=== PATIENT | female | born 1955 | race Caucasian/White ===

== ENCOUNTER 2017-08-22 12:40 | Inpatient (IN) | payer MEDICARE ==
[~2017-08-22] VITALS: Ht 157.5 cm; Wt 87.7 kg
[2017-08-22 15:30] VITALS: BP 118/56
[2017-08-22 15:44] VITALS: BP 118/56
[2017-08-22] MEDS ORDERED: ACETAMINOPHEN 325 MG TABLET PO PRN (16:30)
[2017-08-22] MEDS ORDERED: morphine SULFATE 10 MG/ML, 1ML IVPush PRN (16:30)
[2017-08-22] MEDS ORDERED: ONDANSETRON 2MG/ML, 2ML IVPush PRN (16:30)
[2017-08-22] MEDS ORDERED: VANCOMYCIN PMX 1GM/200ML 200 ML IV ONE (16:30)
[2017-08-22] MEDS ORDERED: hydrALAzine 20 MG/ML, 1ML IVPush PRN (16:30)
[2017-08-22] MEDS ORDERED: PLEASE ENTER ALLERGIES MC SCH (16:30)
[2017-08-22] MEDS ORDERED: PLEASE ENTER HEIGHT AND WEIGHT MC SCH (16:30)
[2017-08-22] MEDS ORDERED: VANCOMYCIN PER PHARMACY MC PRN (16:30)
[2017-08-22] MEDS ORDERED: ENOXAPARIN 40 MG/0.4 ML SQ SCH (16:30)
[2017-08-22] MEDS ORDERED: GADOBUTROL 10 MMOL/10 ML PFS ONE (17:30)
[2017-08-22] MEDS: SODIUM CHLORIDE 0.9% 1,000 ML IV SCH (17:54)
[2017-08-22] MEDS: HYDROcodone/APAP 5/325 TABLET PO PRN (18:23)
[2017-08-22 18:41] LABS: BASOPHILS # (AUTO) 0.01 x10^3/uL (0-0.1); BASOPHILS % (AUTO) 0 % (0-1); EOSINOPHILS # (AUTO) 0.05 x10^3/uL (0-0.4); EOSINOPHILS % (AUTO) 1 % (1-7); LYMPHOCYTES # (AUTO) 1.02 x10^3/uL (1-3.4); LYMPHOCYTES % (AUTO) 13 % (22-44); MD NO; MEAN CORPUSCULAR HEMOGLOBIN 29.1 pg (27.0-34.8); MEAN CORPUSCULAR HGB CONC 33.1 g/dL (32.4-35.8); MEAN CORPUSCULAR VOLUME 88.2 fL (80-100); MEAN PLATELET VOLUME 8.8 fL (7.4-10.4); MONOCYTES # (AUTO) 0.61 x10^3/uL (0.2-0.8); MONOCYTES % (AUTO) 8 % (2-9); NEUTROPHILS # (AUTO) 6.35 x10^3/uL (1.8-6.8); NEUTROPHILS % (AUTO) 79 % (42-75); PLATELET COUNT 251 x10^3/uL (130-400); RED BLOOD COUNT 3.73 x10^6/uL (3.82-5.3)
[2017-08-22 18:54] LABS: ANION GAP 7 mmol/L (5-15); CALCIUM 8.4 mg/dL (8.5-10.1); CHLORIDE 110 mmol/L (98-107); CREATININE 1.18 mg/dL (0.55-1.02)
[2017-08-22 19:03] LABS: FREE T4 (FREE THYROXINE) 1.05 ng/dL (0.76-1.46)
[2017-08-22 19:22] LABS: HEMOGLOBIN A1C 5.6 % (4.2-6.3)
[2017-08-22 19:30] VITALS: BP 112/67
[2017-08-22] MEDS: LINEZOLID PMX 600MG/300ML 300 ML IV SCH (20:39)
[2017-08-23] MEDS: HYDROcodone/APAP 5/325 TABLET PO PRN ×4 (01:39→21:34)
[2017-08-23 01:43] VITALS: BP 117/63
[2017-08-23 05:07] LABS: CHLORIDE 112 mmol/L (98-107)
[2017-08-23 05:18] LABS: ANION GAP 11 mmol/L (5-15); CALCIUM 8.6 mg/dL (8.5-10.1)
[2017-08-23 05:20] LABS: BASOPHILS # (AUTO) 0.02 x10^3/uL (0-0.1); BASOPHILS % (AUTO) 0 % (0-1); EOSINOPHILS # (AUTO) 0.08 x10^3/uL (0-0.4); EOSINOPHILS % (AUTO) 1 % (1-7); LYMPHOCYTES # (AUTO) 0.77 x10^3/uL (1-3.4); LYMPHOCYTES % (AUTO) 14 % (22-44); MD NO; MEAN CORPUSCULAR HEMOGLOBIN 29.9 pg (27.0-34.8); MEAN CORPUSCULAR HGB CONC 33.5 g/dL (32.4-35.8); MEAN CORPUSCULAR VOLUME 89.2 fL (80-100); MONOCYTES # (AUTO) 0.61 x10^3/uL (0.2-0.8); MONOCYTES % (AUTO) 11 % (2-9); NEUTROPHILS # (AUTO) 4.01 x10^3/uL (1.8-6.8); NEUTROPHILS % (AUTO) 73 % (42-75); PLATELET COUNT 201 x10^3/uL (130-400); RED BLOOD COUNT 3.61 x10^6/uL (3.82-5.3); RED CELL DISTRIBUTION WIDTH 13.8 % (9.6-15.2)
[2017-08-23] MEDS: SODIUM CHLORIDE 0.9% 1,000 ML IV SCH ×2 (05:51→19:30)
[2017-08-23 07:09] VITALS: BP 116/62
[2017-08-23] MEDS ORDERED: OXYB5TAB7 PO (07:16)
[2017-08-23] MEDS ORDERED: FENT1PAT77 TD (07:16)
[2017-08-23] MEDS ORDERED: SULF1TAB24 PO (07:16)
[2017-08-23] MEDS ORDERED: METO25TA91 PO (07:16)
[2017-08-23] MEDS ORDERED: CLON1TAB PO (07:16)
[2017-08-23] MEDS ORDERED: CELE100C PO (07:16)
[2017-08-23] MEDS: LINEZOLID PMX 600MG/300ML 300 ML IV SCH ×2 (08:42→20:31)
[2017-08-23] MEDS: METOPROLOL SUCCINATE 25 MG TAB.ER.24H PO SCH (08:43)
[2017-08-23 09:29] LABS: INTERNATIONAL NORMALIZED RATIO 1.05 (0.93-1.1); PROTHROMBIN TIME 10.8 Seconds (9.6-11.5)
[2017-08-23 13:17] VITALS: BP 104/54
[2017-08-23] MEDS: FLUOXETINE HCL 20 MG CAPSULE PO SCH (13:17)
[2017-08-23] MEDS ORDERED: EPINEPHRINE 1 MG/ML, 1ML ONE (16:41)
[2017-08-23] MEDS ORDERED: BUPIVACAINE/PF 0.25% ONE (16:41)
[2017-08-23] MEDS ORDERED: MIDAZOLAM 1 MG/ML, 2ML ONE (16:56)
[2017-08-23] MEDS ORDERED: FENTANYL PF 100 MCG/2ML ONE (16:56)
[2017-08-23] MEDS ORDERED: ONDANSETRON 2MG/ML, 2ML ONE (17:03)
[2017-08-23] MEDS ORDERED: DEXAMETHASONE 4 MG/ML, 1ML ONE (17:03)
[2017-08-23] MEDS ORDERED: CEFAZOLIN 1,000 MG ONE (17:03)
[2017-08-23] MEDS ORDERED: PROPOFOL 10 MG/ML, 20ML ONE (17:03)
[2017-08-23] MEDS ORDERED: BUPIVACAINE/PF 0.25% INFIL ONE (17:31)
[2017-08-23] MEDS ORDERED: METOPROLOL 1 MG/ML, 5ML IV PRN (18:00)
[2017-08-23] MEDS ORDERED: HYDROcodone/APAP 7.5-325MG/15ML UDC PO PRN (18:00)
[2017-08-23] MEDS ORDERED: ONDANSETRON 2MG/ML, 2ML IVPush PRN (18:00)
[2017-08-23] MEDS ORDERED: LABETALOL 5MG/ML, 20ML IV PRN (18:00)
[2017-08-23] MEDS ORDERED: ALBUTEROL SULFATE 2.5 MG/3 ML NPPB PRN (18:00)
[2017-08-23] MEDS ORDERED: MIDAZOLAM 1 MG/ML, 2ML IV PRN (18:00)
[2017-08-23] MEDS ORDERED: ACETAMINOPHEN 325 MG TABLET PO PRN (18:00)
[2017-08-23] MEDS ORDERED: EPHEDRINE 50 MG/ML, 1ML IVPush PRN (18:00)
[2017-08-23] MEDS ORDERED: PROMETHAZINE 25 MG/ML, 1ML IV PRN (18:00)
[2017-08-23] MEDS ORDERED: FENTANYL PF 100 MCG/2ML IV PRN (18:00)
[2017-08-23] MEDS ORDERED: hydrALAzine 20 MG/ML, 1ML IV PRN (18:00)
[2017-08-23] MEDS ORDERED: OXYcodone 5 MG/5 ML ORAL.SOL UDC PO PRN (18:00)
[2017-08-23] MEDS ORDERED: morphine SULFATE 10 MG/ML, 1ML IV PRN (18:00)
[2017-08-23 18:29] VITALS: BP 110/68
[2017-08-23] MEDS: TEMAZEPAM 15 MG CAPSULE PO PRN (22:52)
[2017-08-23 23:34] VITALS: BP 128/76
[2017-08-24 02:21] VITALS: BP 129/67
[2017-08-24] MEDS: SODIUM CHLORIDE 0.9% 1,000 ML IV SCH ×3 (03:30→23:30)
[2017-08-24 05:30] LABS: BASOPHILS # (AUTO) 0.01 x10^3/uL (0-0.1); BASOPHILS % (AUTO) 0 % (0-1); EOSINOPHILS % (AUTO) 0 % (1-7); LYMPHOCYTES # (AUTO) 0.59 x10^3/uL (1-3.4); LYMPHOCYTES % (AUTO) 9 % (22-44); MD NO; MEAN CORPUSCULAR HEMOGLOBIN 29.4 pg (27.0-34.8); MEAN CORPUSCULAR HGB CONC 33.1 g/dL (32.4-35.8); MEAN CORPUSCULAR VOLUME 88.7 fL (80-100); MEAN PLATELET VOLUME 8.6 fL (7.4-10.4); MONOCYTES # (AUTO) 0.31 x10^3/uL (0.2-0.8); MONOCYTES % (AUTO) 5 % (2-9); NEUTROPHILS # (AUTO) 5.66 x10^3/uL (1.8-6.8); NEUTROPHILS % (AUTO) 86 % (42-75); PLATELET COUNT 228 x10^3/uL (130-400); RED BLOOD COUNT 3.62 x10^6/uL (3.82-5.3); RED CELL DISTRIBUTION WIDTH 13.9 % (9.6-15.2)
[2017-08-24 05:39] LABS: ANION GAP 8 mmol/L (5-15); CALCIUM 8.4 mg/dL (8.5-10.1); CHLORIDE 113 mmol/L (98-107); CREATININE 0.96 mg/dL (0.55-1.02)
[2017-08-24] MEDS: HYDROcodone/APAP 5/325 TABLET PO PRN ×5 (06:22→22:56)
[2017-08-24] MEDS: LINEZOLID PMX 600MG/300ML 300 ML IV SCH (08:03)
[2017-08-24] MEDS: FLUOXETINE HCL 20 MG CAPSULE PO SCH (08:03)
[2017-08-24] MEDS: METOPROLOL SUCCINATE 25 MG TAB.ER.24H PO SCH (08:04)
[2017-08-24 08:43] VITALS: BP 109/55
[2017-08-24 13:40] VITALS: BP 120/64
[2017-08-24] MEDS: DAPTOMYCIN 600 MG in SODIUM CHLORIDE 0.9% 100 ML IV SCH (14:23)
[2017-08-24] MEDS ORDERED: FENTANYL PF 100 MCG/2ML ONE (14:45)
[2017-08-24] MEDS ORDERED: LIDOCAINE 1%, 20ML ONE (14:47)
[2017-08-24] MEDS ORDERED: FENTANYL PF 100 MCG/2ML IV ONE ×2 (15:45→16:30)
[2017-08-24 16:07] VITALS: BP 109/64
[2017-08-24 19:54] VITALS: BP 124/66
[2017-08-24] MEDS: ENOXAPARIN 40 MG/0.4 ML SQ SCH (20:49)
[2017-08-25 03:01] VITALS: BP 140/80
[2017-08-25] MEDS: HYDROcodone/APAP 5/325 TABLET PO PRN ×5 (03:32→21:06)
[2017-08-25 07:26] VITALS: BP 144/84
[2017-08-25] MEDS: METOPROLOL SUCCINATE 25 MG TAB.ER.24H PO SCH (07:35)
[2017-08-25] MEDS: FLUOXETINE HCL 20 MG CAPSULE PO SCH (07:35)
[2017-08-25] MEDS: SODIUM CHLORIDE 0.9% 1,000 ML IV SCH ×3 (09:30→22:50)
[2017-08-25 14:37] VITALS: BP 136/78
[2017-08-25] MEDS: DAPTOMYCIN 600 MG in SODIUM CHLORIDE 0.9% 100 ML IV SCH (14:41)
[2017-08-25 19:16] VITALS: BP 111/60
[2017-08-25] MEDS: ENOXAPARIN 40 MG/0.4 ML SQ SCH (21:06)
[2017-08-25] MEDS: TEMAZEPAM 15 MG CAPSULE PO PRN (21:33)
[2017-08-26] MEDS: TEMAZEPAM 15 MG CAPSULE PO PRN ×2 (00:33→21:11)
[2017-08-26] MEDS: HYDROcodone/APAP 5/325 TABLET PO PRN ×6 (01:05→23:29)
[2017-08-26 01:07] VITALS: BP 148/81
[2017-08-26 05:51] LABS: CHLORIDE 112 mmol/L (98-107)
[2017-08-26 06:00] LABS: ANION GAP 9 mmol/L (5-15); CALCIUM 8.1 mg/dL (8.5-10.1); CREATININE 0.69 mg/dL (0.55-1.02)
[2017-08-26 07:03] VITALS: BP 150/85
[2017-08-26] MEDS: METOPROLOL SUCCINATE 25 MG TAB.ER.24H PO SCH (07:31)
[2017-08-26] MEDS: FLUOXETINE HCL 20 MG CAPSULE PO SCH (07:31)
[2017-08-26] MEDS: SODIUM CHLORIDE 0.9% 1,000 ML IV SCH ×2 (08:11→17:40)
[2017-08-26 12:35] VITALS: BP 150/81
[2017-08-26] MEDS: DAPTOMYCIN 600 MG in SODIUM CHLORIDE 0.9% 100 ML IV SCH (15:18)
[2017-08-26 18:50] VITALS: BP 153/77
[2017-08-26] MEDS: ENOXAPARIN 40 MG/0.4 ML SQ SCH (21:11)
[2017-08-27] MEDS: BACLOFEN 10 MG TABLET PO SCH ×2 (00:40→08:12)
[2017-08-27 01:51] VITALS: BP 160/81
[2017-08-27] MEDS: HYDROcodone/APAP 5/325 TABLET PO PRN ×4 (03:41→21:34)
[2017-08-27 04:16] LABS: BASOPHILS # (AUTO) 0.03 x10^3/uL (0-0.1); BASOPHILS % (AUTO) 0 % (0-1); EOSINOPHILS # (AUTO) 0.17 x10^3/uL (0-0.4); EOSINOPHILS % (AUTO) 2 % (1-7); LYMPHOCYTES % (AUTO) 10 % (22-44); MD NO; MEAN CORPUSCULAR HEMOGLOBIN 29.2 pg (27.0-34.8); MEAN CORPUSCULAR VOLUME 88.4 fL (80-100); MEAN PLATELET VOLUME 8.5 fL (7.4-10.4); MONOCYTES # (AUTO) 0.58 x10^3/uL (0.2-0.8); MONOCYTES % (AUTO) 6 % (2-9); NEUTROPHILS # (AUTO) 7.64 x10^3/uL (1.8-6.8); NEUTROPHILS % (AUTO) 82 % (42-75); PLATELET COUNT 250 x10^3/uL (130-400); RED BLOOD COUNT 4.04 x10^6/uL (3.82-5.3); RED CELL DISTRIBUTION WIDTH 13.5 % (9.6-15.2)
[2017-08-27 04:18] LABS: ALANINE AMINOTRANSFERASE 19 U/L (12-78); ALBUMIN 2.9 g/dL (3.4-5.0); ANION GAP 8 mmol/L (5-15); CALCIUM 8.2 mg/dL (8.5-10.1); CHLORIDE 110 mmol/L (98-107)
[2017-08-27 04:25] LABS: ALKALINE PHOSPHATASE 76 U/L (45-117); BILIRUBIN,TOTAL 0.3 mg/dL (0.2-1.0); CREATINE KINASE, TOTAL 173 U/L (26-192); TOTAL PROTEIN 6.4 g/dL (6.4-8.2)
[2017-08-27 04:43] LABS: HCT (SEDRATE) 35.7 % (34.6-47.8)
[2017-08-27 06:55] VITALS: BP 162/93
[2017-08-27] MEDS: SODIUM CHLORIDE 0.9% 1,000 ML IV SCH ×2 (07:00→17:00)
[2017-08-27] MEDS: METOPROLOL SUCCINATE 25 MG TAB.ER.24H PO SCH (08:12)
[2017-08-27] MEDS: FLUOXETINE HCL 20 MG CAPSULE PO SCH (08:12)
[2017-08-27] MEDS ORDERED: POTASSIUM CHLORIDE 20 MEQ TAB.ER.PRT PO ONE (08:30)
[2017-08-27 12:49] VITALS: BP 151/85
[2017-08-27] MEDS: DAPTOMYCIN 600 MG in SODIUM CHLORIDE 0.9% 100 ML IV SCH (13:41)
[2017-08-27 13:48] LABS: ANION GAP 8 mmol/L (5-15); CHLORIDE 109 mmol/L (98-107); CREATININE 0.65 mg/dL (0.55-1.02)
[2017-08-27 20:00] VITALS: BP 155/98
[2017-08-27] MEDS: ENOXAPARIN 40 MG/0.4 ML SQ SCH (21:34)
[2017-08-28] MEDS: HYDROcodone/APAP 5/325 TABLET PO PRN ×4 (01:38→20:33)
[2017-08-28 01:58] VITALS: BP 153/91
[2017-08-28] MEDS: SODIUM CHLORIDE 0.9% 1,000 ML IV SCH ×3 (03:00→23:00)
[2017-08-28 07:20] VITALS: BP 167/98
[2017-08-28 08:00] VITALS: BP 154/84
[2017-08-28] MEDS: BACLOFEN 10 MG TABLET PO SCH (08:49)
[2017-08-28] MEDS: METOPROLOL SUCCINATE 25 MG TAB.ER.24H PO SCH (08:50)
[2017-08-28] MEDS: FLUOXETINE HCL 20 MG CAPSULE PO SCH (08:51)
[2017-08-28 12:41] VITALS: BP 137/85
[2017-08-28] MEDS: DAPTOMYCIN 600 MG in SODIUM CHLORIDE 0.9% 100 ML IV SCH (12:45)
[2017-08-28] MEDS ORDERED: IBUPROFEN 200 MG TABLET PO PRN (15:00)
[2017-08-28] MEDS ORDERED: IBUPROFEN 200 MG TABLET ONE (15:03)
[2017-08-28 20:21] VITALS: BP 153/92
[2017-08-28] MEDS ORDERED: BACLOFEN 10 MG TABLET PO PRN (20:30)
[2017-08-28] MEDS: ENOXAPARIN 40 MG/0.4 ML SQ SCH (20:33)
[2017-08-29] MEDS: HYDROcodone/APAP 5/325 TABLET PO PRN (00:47)
[2017-08-29 01:03] VITALS: BP 157/88
[2017-08-29 06:40] VITALS: BP 158/86
[2017-08-29] MEDS ORDERED: DAPT500V6 IV (07:15)
[2017-08-29] MEDS ORDERED: FLUO20CA8 PO (07:16)
[2017-08-29] MEDS ORDERED: POLY17PO5 PO (07:31)
[2017-08-29] MEDS: BACLOFEN 10 MG TABLET PO SCH (08:31)
[2017-08-29] MEDS: METOPROLOL SUCCINATE 25 MG TAB.ER.24H PO SCH (08:33)
[2017-08-29] MEDS: FLUOXETINE HCL 20 MG CAPSULE PO SCH (08:33)
== END 2017-08-29 10:39 | disposition home or self-care (01) | DRG 513 ==
LOC: 4NOR 15:25
PROVIDERS: ADMIT Internal Medicine; ATTEND Internal Medicine
PROC: 0X6R0Z3 Detachment at Left Middle Finger, Low, Open Approach (ICD-10-PCS; 2017-08-23)
PROC: 0JH63XZ Insertion of Tunneled Vascular Access Device into Chest Subcutaneous Tissue and Fascia, Percutaneous Approach (ICD-10-PCS; principal; 2017-08-24)
PROC: 02HV33Z Insertion of Infusion Device into Superior Vena Cava, Percutaneous Approach (ICD-10-PCS; 2017-08-24)
PROC: B5181ZA Fluoroscopy of Superior Vena Cava using Low Osmolar Contrast, Guidance (ICD-10-PCS; 2017-08-24)
PROC: B548ZZA Ultrasonography of Superior Vena Cava, Guidance (ICD-10-PCS; 2017-08-24)
DX: M86.8X4 Other osteomyelitis, hand (principal); E46 Unspecified protein-calorie malnutrition; N18.3 Chronic kidney disease, stage 3 (moderate); E66.01 Morbid (severe) obesity due to excess calories; G60.0 Hereditary motor and sensory neuropathy; L02.512 Cutaneous abscess of left hand; D63.8 Anemia in other chronic diseases classified elsewhere; L03.012 Cellulitis of left finger; E87.6 Hypokalemia; F32.9 Major depressive disorder, single episode, unspecified; F41.1 Generalized anxiety disorder; Z96.651 Presence of right artificial knee joint; I12.9 Hypertensive chronic kidney disease with stage 1 through stage 4 chronic kidney disease, or unspecified chronic kidney disease; Z22.322 Carrier or suspected carrier of Methicillin resistant Staphylococcus aureus; Z80.9 Family history of malignant neoplasm, unspecified; Z68.34 Body mass index [BMI] 34.0-34.9, adult; Z86.14 Personal history of Methicillin resistant Staphylococcus aureus infection; Z88.0 Allergy status to penicillin; Z89.511 Acquired absence of right leg below knee; Z89.512 Acquired absence of left leg below knee; Z90.49 Acquired absence of other specified parts of digestive tract; Z88.6 Allergy status to analgesic agent; Z88.8 Allergy status to other drugs, medicaments and biological substances; Z88.5 Allergy status to narcotic agent; Z91.048 Other nonmedicinal substance allergy status; Z90.89 Acquired absence of other organs
CPT/HCPCS: 36415; 36558; 76937; 77001; 80048; 80053; 82550; 83036; 83735; 84100; 84439; 84443; 85025; 85610; 85651; 86140; 87040; 87070; 87075; 87077; 87186; 87205; A9585; J0171; J0690; J0878; J1100; J1650; J2020; J2250; J2405; J2704; J3010; J3490; C1751; J7030